=== PATIENT | female | born 2005 | race Caucasian/White ===

== ENCOUNTER 2024-02-22 11:23 | Outpatient (CLI) | payer BC, SELFPAY ==
[2024-02-22 23:11] LABS: Chlamydia DNA Amplified* NOT DETECTED (No Detected); GC DNA Amplified* NOT DETECTED (No Detected)
== END 2024-02-22 11:24 | disposition home or self-care (01) ==
PROVIDERS: PCP Physician Assistant Medical; Visit Provider Physician Assistant Medical
DX: Z00.00 Encounter for general adult medical examination without abnormal findings (principal); N89.8 Other specified noninflammatory disorders of vagina
CPT/HCPCS: 87491; 87591

== ENCOUNTER 2024-05-10 16:29 | Emergency (ER) | payer BC, SELFPAY ==
[2024-05-10 16:35] VITALS: BP 123/77; PULSE 69; RESP 16; TEMP 37.5; O2SAT 99; BMI 26.5
--- NOTE | 2024-05-10 20:31 | ED_ITS ---
HPI - Ear Problem General Chief complaint: Ear/Nose/Throat Problem Stated complaint: both ears stuffed, some pain in both ears Time Seen by Provider: 05/10/24 16:42 History of Present Illness HPI Narrative: This 18-year-old female comes in with a plugged feeling in both of her ears. She states that she has had this for a month or more and has had issues with wax buildup in her ears. She states that she did use the earwax removal solution but did not get any good results. She does not report any fever or upper respiratory symptoms. She is hoping to get her ears cleaned out here. Related Data Previous Rx's ?Medication ?Instructions ?Recorded famotidine 20 mg tablet 20 mg PO QDAY #90 tabs 11/27/22 norgestimate 0.25 mg-ethinyl 1 tab PO QDAY #84 tabs 04/04/24 estradiol 35 mcg tablet Allergies Allergy/AdvReac Type Severity Reaction Status Date / Time No Known Drug Allergies Allergy Verified 02/22/24 11:02 Review of Systems Status of ROS: Reports: 10 or more systems reviewed and unremarkable except as noted in History and below Narrative: Constitutional: No fevers, no weight gain or loss. Eyes: No discharge. No vision changes. HENT: No congestion, no sore throat. Plugged feeling in her ears. Cardiovascular: No chest pain, no palpitations. Respiratory: No shortness of breath, no wheezes, no cough. Gastrointestinal: No abdominal pain, no vomiting, no diarrhea. Genitourinary: No dysuria, no hematuria. Musculoskeletal: Normal range of motion. Skin: No rashes, no pruritis. Neurological: No dizziness, weakness, sensory change, speech change. Endo/Heme/Allergies: No bruising or bleeding. No polydipsia. Pysch: no suicidality, no anxiety, no insomnia. All other systems reviewed and are negative. [facility] Medical History (Updated 05/10/24 @ 20:36 by Andriy Rosales MD) History of prematurity (04/02/11) ?Z87.898 - Personal history of other specified conditions (ICD-10) Cellulitis ?L03.90 - Cellulitis, unspecified (ICD-10) Surgical History (Updated 11/27/22 @ 16:08 by Meredith De La Torre PA-C) History of placement of ear tubes ?Z96.22 - Myringotomy tube(s) status (ICD-10) History of tonsillectomy and adenoidectomy ?Z90.89 - Acquired absence of other organs (ICD-10) Family History (Updated 11/27/22 @ 16:13 by Meredith De La Torre PA-C) Mother Laryngeal web Sister Depression Anxiety Social History (Updated 11/27/22 @ 16:10 by Meredith De La Torre PA-C) Narrative: Single. College student- [employer], [place]; pursuing civil engineering. Alcohol use- 2x month No recreational drugs No tobacco Smoking Status: Never smoker Exam Narrative: Exam Narrative: Constitutional: Well-developed, well-nourished, no acute distress. HEENT: Normocephalic, atraumatic. Tympanic membranes are partially visualized in both ears and appear normal. There is cerumen present in both ear canals romario t is brown in color and seems to be located more toward the external aspect of the ear canal. Neck: Normal range of motion. Nontender. Supple. Heart: Intact distal pulses. Lungs: No chest discomfort. No wheezes, rhonchi, or rales. Abdomen: Nontender. Back: Normal range of motion. Extremities: Normal range of motion. No injury. Skin: Intact. No rash. Warm. No erythema or pallor. Neurologic: No altered sensation. No weakness. Alert and oriented. Psychiatric: No suicidality. No anxiety or depression. No insomnia. Nursing notes and vitals signs are reviewed. Const: Vital Signs, click to edit/add: Vital Signs - 24 hr 05/10/24 16:35 Temperature 99.5 F Pulse Rate [Pulse Oximeter] 69 Respiratory Rate 16 Blood Pressure [Ri ght Upper Arm] 123/77 Pulse Oximetry 99 Oxygen Delivery Me thod Room Air Course Vital Signs Vital signs: Initial Vital Signs Temperature 99.5 F 05/10/24 16:35 Temperature Source Temporal Artery Scan 05/10/24 16:35 Pulse Rate 69 05/10/24 16:35 Respiratory Rate 16 05/10/24 16:35 Blood Pressure 123/77 05/10/24 16:35 Blood Pressure Mean 92 05/10/24 16:35 Blood Pressure Position Sitting 05/10/24 16:35 Pulse Oximetry 99 05/10/24 16:35 Oxygen Delivery Method Room Air 05/10/24 16:35 Vital Signs Temperature 99.5 F 05/10/24 16:35 Pulse Rate 69 05/10/24 16:35 Respiratory Rate 16 05/10/24 16:35 Blood Pressure 123/77 05/10/24 16:35 Pulse Oximetry 99 05/10/24 16:35 Oxygen Delivery Method Room Air 05/10/24 16:35 Temperature 99.5 F 05/10/24 16:35 Pulse Rate 69 05/10/24 16:35 Respiratory Rate 16 05/10/24 16:35 Blood Pressure 123/77 05/10/24 16:35 Pulse Oximetry 99 05/10/24 16:35 Oxygen Delivery Method Room Air 05/10/24 16:35 Medical Decision Making MDM Narrative Medical decision making narrative: This patient comes in cerumen present in both ear canals and wants to have it removed. The cerumen has been there for a while and seems to be somewhat adhered to the ear canal. I explained that we would typically are not able to be successful in removing cerumen because it becomes too uncomfortable when using a curette. I did find equipment to attempt to irrigate and did get some e ar wax removed from both ear canals. There is still wax present that I was unable to remove without discomfort. I advised her to follow-up with ear nose and throat clinic where there are better tools and skills to attend to this matter. She did have some vertigo symptoms after irrigating her ear canal so I did administer a meclizine tablet. Discharge Plan Discharge Clinical Impression: Excessive cerumen in both ear canals Patient Disposition: Home, Self-Care Condition: Stable Additional Instructions: Follow-up with ear nose and throat clinic for further management and treatment. Call [phone] Garcia or dial [phone] Agustin. Prescriptions: No Action famotidine 20 mg tablet 20 mg PO QDAY Qty: 90 3RF Patient Comments: TAKE ONE TABLET BY MOUTH DAILY norgestimate-ethinyl estradiol 0.25-35 mg-mcg tablet 1 tab PO QDAY Qty: 84 3RF Follow Up/Referrals: Meredith De La Torre PA-C [Primary Care Provider] - Stand Alone Forms: [email or web address] Info Instructions
[2024-05-10] MEDS: MECLIZINE HCL 25 MG TABLET PO (21:07)
== END 2024-05-10 21:17 | disposition home or self-care (01) ==
LOC: ED 20:46
PROVIDERS: Emergency Provider Emergency Medicine Emergency Medical Services; PCP Physician Assistant Medical
DX: H61.23 Impacted cerumen, bilateral (principal)
CPT/HCPCS: 99283; 99284; A9270